=== PATIENT | female | born 2000 ===

== ENCOUNTER 2024-07-17 17:09 | Emergency (ER) | payer MEDICAID ==
[~2024-07-17] VITALS: Ht 167.6 cm; Wt 63.4 kg
[2024-07-17 17:17] VITALS: BP 112/56; PULSE 65; RESP 16; TEMP 98.1; O2SAT 98
== END 2024-07-17 18:34 | disposition left against medical advice (07) ==
LOC: ER 17:10
DX: S01.81XA Laceration without foreign body of other part of head, initial encounter (principal); Z53.21 Procedure and treatment not carried out due to patient leaving prior to being seen by health care provider; V89.2XXA Person injured in unspecified motor-vehicle accident, traffic, initial encounter; Y93.89 Activity, other specified; Y92.89 Other specified places as the place of occurrence of the external cause; Y99.8 Other external cause status
CPT/HCPCS: A6449